=== PATIENT | female | born 1985 | race Caucasian/White ===

== ENCOUNTER 2020-08-10 22:40 | Emergency (ER) | payer BC, OTHER ==
[2020-08-10] MEDS ORDERED: Ondansetron PF 4 MG/2 ML Vial ONE (22:50)
[2020-08-10] MEDS ORDERED: Fentanyl 100 MCG/2 ML VIAL ONE (22:50)
[2020-08-10 23:07] LABS: Hemoglobin 14.1 g/dL (12.0-16.0); Mean Corpuscular HGB CONC 33.8 g/dL (32.0-36.0); Mean Corpuscular Hemoglobin 31.4 pg (27.0-31.0); Mean Corpuscular Volume 92.7 fL (78.0-98.0); Mean Platelet Volume 8.6 fL (7.4-10.4); Platelet Count 250 thou/uL (130-400); RBC Distribution Width 11.6 % (11.5-14.5)
[2020-08-10 23:16] LABS: BHCG - Serum Negative (NEGATIVE); Pregs Control Background? CLEAR/WHITE (CLR/WHITE); Pregs Control Bar Appear? YES (CONTROL BAR)
[2020-08-10 23:23] LABS: ALT (SGPT) 17 U/L (8-55); AST (SGOT) 21 U/L (5-34); Albumin 4.5 g/dL (3.5-5.0); Alkaline Phosphatase 41 U/L (40-110); Anion Gap 18 mmol/L (10-20); BUN (Urea Nitrogen) 18 mg/dL (7.0-18.7); Bilirubin, Total 0.5 mg/dL (0.2-1.2); Calc. Creatinine Clearance 0 mL/min (70-130); Calcium 9.6 mg/dL (7.8-10.44); Carbon Dioxide 22 mmol/L (22-29); Chloride 103 mmol/L (98-107); Globulin 3.5 g/dL (2.4-3.5); Glucose 116 mg/dL (70-105); Potassium 3.7 mmol/L (3.5-5.1); Sodium 139 mmol/L (136-145)
[2020-08-10] MEDS ORDERED: Cefepime 2 GM VIAL ONE (23:29)
[2020-08-10 23:30] LABS: Band 2 % (5-11); Eosinophils 1 % (0-10); Lymphocytes 5 % (21-51); MDiff Complete? YES; Neutrophil 91 % (42-75); Platelet Morphology Comment Appears Adequate; RBC Morphology Normal; Reactive Lymphocytes 1 % (0-10)
[2020-08-11] MEDS ORDERED: Morphine 2 MG/ML VIAL ONE (00:04)
[2020-08-11 00:08] LABS: Bilirubin Negative (Negative); Blood, Urine Negative (Negative); Clarity Clear (Clear); Glucose, Urine (Dipstick) Negative (Negative); Ketone, Urine 40 mg/dL (Negative); Leukocyte Negative (Negative); Nitrite Negative (Negative); Protein, Urine (Dipstick) Trace mg/dL (Neg-Trace); Urobilinogen 0.2 mg/dL (Less than 2); pH, Urine 6.5 (5.0-9.0)
== END 2020-08-11 00:30 | disposition short-term general hospital (02) ==
LOC: BURERS 22:40
DX: K35.80 Unspecified acute appendicitis (principal); F17.210 Nicotine dependence, cigarettes, uncomplicated
CPT/HCPCS: 74177; 80053; 81003; 84703; 85025; 94760; 96361; 96365; 96375; J0692; J2270; J2405; J3010